=== PATIENT | male | born 1990 | race Caucasian/White ===

== ENCOUNTER → 2020-07-07 15:25 | Outpatient (CLI) | payer OTHER, SELFPAY ==
[2020-07-07 19:09] LABS: Coronavirus 19 IgG Antibody Negative (Negative); Coronavirus 19 IgM Antibody Negative (Negative)
[2020-07-09 08:44] LABS: Covid-19 Nasal PCR Sendout P&C POSITIVE
== END ==
PROVIDERS: PCP Nurse Practitioner Family; Visit Provider Nurse Practitioner Family
DX: Z20.822 Contact with and (suspected) exposure to COVID-19 (principal); U07.1 COVID-19
CPT/HCPCS: 36415; 86328; U0004

== ENCOUNTER 2020-09-03 11:26 | Emergency (ER) | payer OTHER, SELFPAY ==
[2020-09-03 11:27] VITALS: BP 115/64; PULSE 75; RESP 16; TEMP 36.9; O2SAT 98; BMI 31.6
--- NOTE | 2020-09-03 11:41 | US_ITS ---
PROCEDURE: US TESTICULAR CLINICAL INDICATION: testicle pain and swelling, r/o torsion COMPARISON: No exams were available for comparison FINDINGS: Right testicle is 4.9 x 2.4 x 3.8 cm. No mass apparent. Blood flow is present. There is a small right epididymal cyst at 5 mm. Left testicle is 4.3 x 2.7 x 3.7 cm. Blood flow is present. No testicular mass. There are some edematous changes of the epididymis on the left IMPRESSION: Possible mild left-sided epididymitis Dictated by: Oneal Simms MD 09/03/2020 13:18 Oneal Simms MD in [place] 09/03/2020 13:18
--- NOTE | 2020-09-03 12:03 | [facility].EDGENADL ---
ED Disposition Clinical Impression: Epididymitis Disposition: Home, Self-Care Condition on Discharge: Good Instructions: DI for Epididymitis Additional Instructions: Doxycycline as prescribed. Ibuprofen as prescribed. Follow-up with your primary care provider, call for appointment. Return to the emergency department if intolerable pain, severe swelling, fever greater than 100 degrees, unable to urinate, or vomiting Prescriptions: Ibuprofen [Ibuprofen 800mg Tablet] 800 mg PO Q8HP PRN #15 tab PRN Reason: Moderate Pain Prescription Printed Doxycycline Monohydrate [Monodox] 100 mg PO BID #20 cap Prescription Printed Referrals: Jocelyn Sainz APRN [Primary Care Provider] - - Critical Care Critical Care Time: No Attestation: On 09/03/20, the high probability of a clinically significant, sudden or life threatening deterioration of the following system(s) required my full and direct attention, intervention and personal management. The time I documented below is in addition to time spent performing reported procedures but includes the following listed in this critical care notation. Medical Decision Making - Sumit Inquiry Pt receiving controlled substance: No Vital Signs: 09/03/20 11:27 Temperature 98.4 F Temperature Source Oral Pulse Rate [Radial] 75 Respiratory Rate 16 Blood Pressure [Right Arm] 115/64 Blood Pressure Mean [Right Arm] 81 Blood Pressure Position [Right Arm] Sitting 02 Sat by Pulse Oximetry 98 Oxygen Delivery Method Room Air - Lab Data Lab Results 09/03/20 12:25: WBC 7.0, RBC 4.89, Hgb 14.6, Hct 44.2, MCV 90.4, MCH 29.8, MCHC 32.9, RDW 13.3, Plt Count 188, MPV 10.4, Neut % (Auto) 54.7, Lymph % (Auto) 35.4, Terrell % (Auto) 6.9, Eos % (Auto) 1.9, Baso % (Auto) 1.1, Neut # (Auto) 3.8, Lymph # (Auto) 2.5, Terrell # (Auto) 0.5, Eos # (Auto) 0.1, Baso # (Auto) 0.1 09/03/20 12:25: Sodium 142, Potassium 4.2, Chloride 106, Carbon Dioxide 30, Anion Gap 10.2, BUN 19, Creatinine 1.10, Estimated Creat Clear 120, Estimated GFR 79, Est GFR ( Amer) 95, Glucose 122 H, Calcium 9.6 Result diagrams: 09/03/20 12:25 09/03/20 12:25 Orders (Tests/Meds): ORDERS Category Date Time Status Urinalysis and Microscopic Stat Lab 09/03/20 10:35 Received US scrotum [US Testicular] Stat Ultrasound 09/03/20 11:41 Taken - US Data US Images: Other (Scrotum ) Findings Narrative: As per [facility] procedure, ultrasound report received from dietetic technician registered: Epididymitis, no signs of testicular torsion General Adult HPI - General Chief complaint: PAIN Stated complaint: male issues Time Seen by Provider: 09/03/20 11:55 Mode of Arrival: Ambulatory Limitations: No Limitations Description of Symptoms (Recalled from ER Triage Doc. by RN): to ed per pvt car with c/o pain, swelling testicles x 2 weeks. pt states symptoms have been intermittent, called pcp today and told to come to ed for eval - History of Present Illness HPI narrative: 2-week history of pain in his scrotum, he says it is mostly the left side posterior testicle. No difficulty urinating, no dysuria, no fever, no penile discharge, no injury. He called his primary care provider who told him to come into the emergency room to get an ultrasound to assess for torsion. No history of prior similar problems. Currently having minimal pain. - Related Data Previous Rx's Medication Instructions Recorded Doxycycline Monohydrate [Monodox] 100 mg PO BID #20 cap 09/03/20 Ibuprofen [Ibuprofen 800mg 800 mg PO Q8HP PRN #15 tab 09/03/20 Tablet] Allergies Allergy/AdvReac Type Severity Reaction Status Date / Time No Known Allergies Allergy Verified 09/03/20 11:41 [facility] History - Hepatitis A Screen Drug use history?: No High risk sexual behaviors?: No History of sexually transmitted infection?: No Currently employed?: No Childcare worker?: No Do you have indoor plumbing?: Yes Do you have electricity?: Yes Attestation
[2020-09-03 12:34] LABS: Basophils # 0.1 K/mm3 (0-0.2); Basophils % 1.1 % (0.1-2.0); Eosinophils # 0.1 K/mm3 (0.0-0.4); Eosinophils % 1.9 % (0.1-12.0); Hematocrit 44.2 % (42.0-52.0); Hemoglobin 14.6 g/dL (14.1-18.0); Lymphocytes # 2.5 K/mm3 (0.7-4.5); Lymphocytes % 35.4 % (10-50); Mean Corpuscular HGB Conc 32.9 g/dL (31.8-35.4); Mean Corpuscular Hemoglobin 29.8 pg (27.0-31.2); Mean Corpuscular Volume 90.4 fl (80-94); Mean Platelet Volume 10.4 fl (7.4-10.4); Monocytes # 0.5 K/mm3 (0.1-1.0); Monocytes % 6.9 % (1.7-9.3); Neutrophils # 3.8 K/mm3 (1.8-7.8); Neutrophils % 54.7 % (37.0-80.0); Platelet Count 188 K/mm3 (142-424); Red Blood Count 4.89 M/mm3 (4.60-6.20); Red Cell Distribution Width 13.3 % (11.5-17.5)
[2020-09-03 12:43] LABS: Chloride 106 mmol/L (98-107); Sodium 142 mmol/L (136-145)
[2020-09-03 12:44] LABS: Potassium 4.2 mmoL/L (3.5-5.1)
[2020-09-03 12:47] LABS: Anion Gap 10.2 mEq/L (5-15); Blood Urea Nitrogen 19 mg/dl (9-20); Calcium 9.6 mg/dl (8.4-10.2); Carbon Dioxide 30 mmol/L (22.0-30.0); Creatinine Clearance Estimated 120 mL/min (50-200); Estimated Glomerular Filt Rate 79 ml/min (>60); GFR (African American) 95 ML/MIN (>60); Glucose 122 mg/dl (74-100)
[2020-09-03 13:06] LABS: Microscopic, Urine URINE MICROSCOPIC (MICROSCOPIC)
[2020-09-03 13:10] LABS: Appearance,Urine CLEAR (Clear); Bilirubin,Urine Negative (Negative); Blood, Urine Negative (Negative); Color,Urine YELLOW (Yellow); Glucose,Urine (UA) TRACE (Negative); Ketones,Urine Negative (Negative); Leukocyte Esterase,Urine Negative (Negative); Nitrate,Urine Negative (Negative); PH,Urine 6.5 (5.0-8.5); Protein,Urine Negative (Negative); Specific Gravity, Urine 1.025 (1.005-1.030); Urobilinogen,Urine 0.2 EU/dl (0.2)
[2020-09-03 13:29] LABS: WBC,Urine Occasional #/hpf (0-3)
[2020-09-03 13:31] VITALS: BP 126/46; PULSE 67; RESP 17; TEMP 36.9; O2SAT 99
[2020-09-07 14:19] LABS: Neisseria gonorrhoeae, NAA Negative (Negative)
== END 2020-09-03 13:32 | disposition home or self-care (01) ==
PROVIDERS: Emergency Provider Emergency Medicine; PCP Nurse Practitioner Family
DX: N45.1 Epididymitis (principal)
CPT/HCPCS: 76870; 80048; 81001; 85025; 87491; 87591; 96374; 96375; 99283